=== PATIENT | male | born 1950 | race Caucasian/White ===

== ENCOUNTER → 2020-01-04 10:18 | Outpatient (CLI) | payer MEDICARE, OTHER, SELFPAY | PROVIDERS: PCP Family Medicine; Referring Provider Family Medicine; Visit Provider Internal Medicine Gastroenterology | DX: M85.851 Other specified disorders of bone density and structure, right thigh (principal); K22.10 Ulcer of esophagus without bleeding; Z85.01 Personal history of malignant neoplasm of esophagus; Z87.891 Personal history of nicotine dependence | CPT/HCPCS: 77080 ==

== ENCOUNTER → 2022-07-13 13:03 | Outpatient (CLI) | payer MEDICARE, OTHER, SELFPAY ==
--- NOTE | 2022-07-13 13:07 | DI.CT.S_ITS ---
PROCEDURE: CT IVP A/P W/WO INDICATIONS: Gross hematuria TECHNIQUE: Optional 5 mm thick noncontrast images acquired from the diaphragm to the symphysis pubis. After the administration of intravenous contrast, 5 mm thick images acquired from the diaphragm to the symphysis pubis after a 10-minute delay. 2 mm thick coronal and sagittal reformats were then performed of the kidneys and ureters. For radiation dose reduction, the following was used: automated exposure control, adjustment of mA and/or kV according to patient size. COMPARISON: None. FINDINGS: Image quality: Excellent. Lung bases: Lung bases are clear. Heart size is normal. Urinary system: Both kidneys are normal in size, without hydronephrosis or nephrolithiasis on pre-contrast images. No perinephric fat stranding. There is normal bilateral renal enhancement. Renal calyces appear normal in morphology when filled with contrast. Opacified portions of both ureters demonstrate normal caliber. Bladder wall thickness is normal. No calcified bladder stones. Other solid organs: Liver is normal in size and enhancement. Gallbladder is absent . Biliary system is non dilated. Pancreas enhances normally. Spleen is normal in size and enhancement. No adrenal nodules. Peritoneum and bowel: Bowel loops demonstrate normal wall thickness and caliber. No free fluid or air. Nodes and vessels: No retroperitoneal or mesenteric adenopathy by size criteria. Aorta and inferior vena cava are normal in size. Abdominal wall: No ventral hernias. Pelvis: No pathologic free pelvic fluid. No inguinal hernias or adenopathy. Bones: No suspicious bony lesions. No vertebral body compression fractures. Bilateral sacroiliitis. IMPRESSION: No nephrolithiasis or filling defect within the opacified renal collecting system. Bilateral sacroiliitis, probably degenerative. Dictated by: Dangelo Guidry M.D. on 07/13/2022 at 15:43 Approved by: Dangelo Guidry M.D. on 07/13/2022 at 15:50
[2022-07-13 13:58] LABS: Estimated Glomerular Filt Rate > 60 mL/min (>60)
== END ==
PROVIDERS: Specialist; PCP Family Medicine; Referring Provider Student in an Organized Health Care Education/Training Program; Visit Provider Student in an Organized Health Care Education/Training Program
DX: R31.0 Gross hematuria (principal); M46.1 Sacroiliitis, not elsewhere classified
CPT/HCPCS: 74178; 82565; Q9967

== ENCOUNTER → 2022-07-22 11:59 | Outpatient (CLI) | payer MEDICARE, OTHER, SELFPAY ==
[2022-07-22 13:33] LABS: Prostate Specific Antigen 1.23 ng/mL (0.10-4.00)
== END ==
PROVIDERS: PCP Family Medicine; Referring Provider Specialist; Visit Provider Specialist
DX: N40.0 Benign prostatic hyperplasia without lower urinary tract symptoms (principal); R31.0 Gross hematuria; R33.9 Retention of urine, unspecified; Z68.22 Body mass index [BMI] 22.0-22.9, adult
CPT/HCPCS: 36415; 51798; 81002; 84153; 99215

== ENCOUNTER → 2023-02-22 10:32 | Outpatient (CLI) | payer MEDICARE, OTHER, SELFPAY ==
--- NOTE | 2023-02-22 10:58 | DI.MRI.S_ITS ---
PROCEDURE: MR PELVIC PROSTATE PROTOCOL INDICATIONS: Abnormal Prostate exam TECHNIQUE: Coronal HASTE, axial T1 FSE with fat saturation, 3-plane nonbreath-hold T2 FSE. After the administration of contrast, dynamic axial, delayed axial and coronal VIBE or 2-D FLASH with fat saturation through the pelvis. Diffusion weighted imaging and ADC was performed. COMPARISON: None. FINDINGS: Image quality: Diffusion weighted and dynamic contrast enhanced images are diagnostic. Prostate: Gland size is 3.8 x 4.9 x 5.4 cm; ellipsoid gland volume is 52 mL. Lesion 1: Location: Right anterior transition zone of the mid gland, on axial series 4, image 14 and sagittal series 6, image 11. Size: 1.3 x 0.9 cm. T2W signal: Partially capsulated nodule containing hypointense signal DWI signal: Markedly hyperintense. ADC signal: Markedly hypointense. Enhancement: Yes. Extracapsular extension: No. No neurovascular involvement. PI-RADS score: 3 Genitourinary system: Bladder wall thickness is normal. Distal ureters are non distended. Bowel and peritoneum: No pathologic free pelvic fluid. Inferior colon and small bowel loops are normal in caliber. Nodes and vessels: No pelvic or inguinal adenopathy by size criteria. Iliac vessels are normal in caliber. Soft tissues: No inguinal hernias. Bones: Marrow demonstrates normal overall signal, without lesions to suggest metastases. IMPRESSION: PI-RADS 3 lesion in the anterior right transition zone, without extracapsular extension. No pelvic lymphadenopathy by size criteria. No aggressive osseous abnormality. Dictated by: Dangelo Guidry M.D. on 02/22/2023 at 12:38 Approved by: Dangelo Guidry M.D. on 02/22/2023 at 12:49
[2023-02-22 21:18] LABS: Prostate Specific Antigen 1.76 ng/mL (0.10-4.00)
== END ==
PROVIDERS: PCP Family Medicine; Referring Provider Specialist; Visit Provider Specialist
DX: N40.1 Benign prostatic hyperplasia with lower urinary tract symptoms (principal); R39.89 Other symptoms and signs involving the genitourinary system; N13.8 Other obstructive and reflux uropathy; N42.9 Disorder of prostate, unspecified
CPT/HCPCS: 36415; 72197; 84153; A9579

== ENCOUNTER → 2023-07-21 10:19 | Outpatient (CLI) | payer MEDICARE, OTHER, SELFPAY ==
[2023-07-21 12:41] LABS: Prostate Specific Antigen 1.44 ng/mL (0.10-4.00)
== END ==
PROVIDERS: PCP Family Medicine; Referring Provider Specialist; Visit Provider Specialist
DX: R39.89 Other symptoms and signs involving the genitourinary system (principal)
CPT/HCPCS: 36415; 84153